=== PATIENT | male | born 1990 | race Two or more races ===

== ENCOUNTER 2019-08-20 23:45 | Inpatient (IN) | payer MEDICAID ==
[~2019-08-20] VITALS: Ht 167.6 cm; Wt 90.7 kg
[2019-08-20 23:50] VITALS: BP 80/72
--- NOTE | 2019-08-20 23:50 | NUR ---
ED Nurse Note: Pt brought into ED by ROMEO RA 826 from home for c/o abdominal pain and n/v since yesterday after using meth. Pt states he quit using meth then has recently started using again. Pt reports he had episodes of vomiting blood and has had black, bloody stools. Pt is aaox4, breathing is normal and unlabored. Pt connected to secondary history teacher and HR is elevated in 140's, ERMD bedside and aware. Pt also had low BP upon ED triage of 80/72. IV line established, blood drawn by RN and fluids inititated. Will continue to monitor.
[2019-08-21] VITALS (8 sets, daily range): BP systolic 96–135; BP diastolic 61–87
[2019-08-21] MEDS ORDERED: Pantoprazole Inj IV ONE
--- NOTE | 2019-08-21 00:03 | Emergency Room Report ---
History of Present Illness General Chief Complaint: Vomiting Source: Patient Present Illness [facility] This is a 29-year-old male with no past medical history. He does have a history of chronic methamphetamine abuse occasional alcohol. He presents with chief complaint abdominal pain with vomiting. Onset yesterday. He said his been using methamphetamine heavily. He felt nauseous and started vomiting yesterday. He noticed blood in his vomiting. His stool was also black. He got progressively worse to have to call 911. He said pain is to the epigastric area. Worse when he stands up. He felt like passing out when he stands up. No trauma. Allergies: Coded Allergies: No Known Allergies (Unverified , 08/20/19) COVID-19 Screening Contact w/high risk pt: No Recent Travel to affected area: No Experienced COVID-19 symptoms?: No Patient History Past Medical History: none, see triage record, old chart reviewed Past Surgical History: none Pertinent Family History: none Social History: Reports: alcohol use, drug use Immunizations: other Reviewed Nursing Documentation: PMH: Agreed; PSxH: Agreed Nursing Documentation-PMH Past Medical History: No Stated History Review of Systems Eye: Denies: eye pain, blurred vision ENT: Denies: ear pain, nose congestion, throat swelling Respiratory: Denies: cough, shortness of breath Cardiovascular: Denies: chest pain, palpitations Gastrointestinal: Reports: abdominal pain, nausea, vomiting; Denies: diarrhea Musculoskeletal: Denies: back pain, joint pain Skin: Denies: rash Neurological: Denies: headache, numbness Endocrine: Denies: increased thirst, increased urine Hematologic/Lymphatic: Denies: easy bruising All Other Systems: negative except mentioned in HPI Physical Exam Vital Signs Date Time Temp Pulse Resp B/P (MAP) Pulse Ox O2 Delivery O2 Flow Rate FiO2 08/20/19 23:41 97.7 166 20 80/72 (75) 89 Room Air Vitals with tachycardia and hypotension. Repeat oxygenation is 94% on room air Sp02 EP Interpretation: reviewed, normal General Appearance: no apparent distress, alert, mild distress Head: normocephalic, atraumatic Eyes: bilateral eye PERRL, bilateral eye EOMI ENT: hearing grossly normal, normal pharynx Neck: full range of motion, supple, no meningismus Respiratory: chest non-tender, lungs clear, normal breath sounds Cardiovascular #1: regular rate, rhythm, no murmur, tachycardia - 130s Gastrointestinal: normal bowel sounds, non tender, no mass, no organomegaly, no bruit, non-distended Musculoskeletal: back normal, normal range of motion, gait/station normal Neurologic: alert, oriented Psychiatric: mood/affect normal Skin: pallor Medical Decision Making Diagnostic Impression: Primary Impression: UGIB (upper gastrointestinal bleed) Additional Impressions: Anemia Qualified Codes: D62 - Acute posthemorrhagic anemia Methamphetamine abuse TIERA (acute kidney injury) PUD (peptic ulcer disease) ER Course Pt with ugi bleed. hg drops from 13.4 to 9.9. HR improves after IVF. CT showed no perforation. PPI given. will admit. I discussed case with Dr. Salinas who will admit. EKG Diagnostic Results Rate: tachycardiac Rhythm: NSR ST Segments: no acute changes Rhythm Strip Diag. Results EP Interpretation: yes Rate: 110 Rhythm: NSR, no PVC's, no ectopy Chest X-Ray Diagnostic Results Chest X-Ray Diagnostic Results : Chest X-Ray Ordered: Yes # of Views/Limited/Complete: 1 View Indication: Chest Pain EP Interpretation: Yes Interpretation: no consolidation, no effusion, no pneumothorax, no acute cardiopulmonary disease Impression: No acute disease Electronically Signed by: Tru Mclaughlin MD CT/MRI/US Diagnostic Results CT/MRI/US Diagnostic Results : Imaging Test Ordered: Ct abd and pelvis Impression Read by radiologist. no perforation. esophagitis. Last Vital Signs Date Time Temp Pulse Resp B/P (MAP) Pulse Ox O2 Delivery O2 Flow Rate FiO2 /15/20 23:41 97.7 166 20 80/72 (75) 89 Room Air Status: improved Disposition: ADMITTED INPATIENT Condition: Serious Scripts No Active Prescriptions or Reported Meds Tru Mclaughlin MD Aug 21, 2019 00:03
[2019-08-21 00:05] LABS: HEMATOCRIT 37.8 % (42.0-52.0); HEMOGLOBIN 13.4 G/DL (14.2-18.0); MEAN CORPUSCULAR VOLUME 79 FL (80-99); PLATELET COUNT 367 K/UL (150-450); RED BLOOD COUNT 4.82 M/UL (4.70-6.10); RED CELL DISTRIBUTION WIDTH 12.2 % (11.6-14.8); WHITE BLOOD COUNT 18.1 K/UL (4.8-10.8)
[2019-08-21 00:15] LABS: ANION GAP 20 mmol/L (5-15); BLOOD UREA NITROGEN 46 mg/dL (7-18); CARBON DIOXIDE 21 MMOL/L (21-32); CHLORIDE 102 MMOL/L (98-107); CREATININE 2.3 MG/DL (0.55-1.30); POTASSIUM 4.1 MMOL/L (3.5-5.1); SODIUM 142 MMOL/L (136-145)
[2019-08-21 00:19] LABS: ALANINE AMINOTRANSFERASE 55 U/L (12-78); ALBUMIN 3.8 G/DL (3.4-5.0); ALBUMIN/GLOBULIN RATIO 0.9 (1.0-2.7); ALKALINE PHOSPHATASE 73 U/L (46-116); ASPARTATE AMINO TRANSFERASE 24 U/L (15-37); BILIRUBIN,TOTAL 0.5 MG/DL (0.2-1.0)
[2019-08-21] MEDS ORDERED: LORazepam Inj 2mg/ml 1ml IV ONE (00:30)
--- NOTE | 2019-08-21 00:30 | NUR ---
ED Nurse Note: Pt BP stable after receiving NS. No acute distress noted.
--- NOTE | 2019-08-21 00:30 | NUR ---
ED Nurse Note: Pt remains tachy with HR in 130's, ERMD made aware. No new orders at this time.
--- NOTE | 2019-08-21 01:10 | NUR ---
ED Nurse Note: Urine collected and sent to lab.
[2019-08-21 01:19] LABS: APPEARANCE,URINE CLEAR; BILIRUBIN, URINE NEGATIVE (NEGATIVE); COLOR,URINE PALE YELLOW; GLUCOSE, URINE (UA) NEGATIVE (NEGATIVE); KETONES,URINE 3+ (NEGATIVE); LEUKOCYTE ESTERASE ,URINE 1+ (NEGATIVE); NITRITE,URINE NEGATIVE (NEGATIVE); PH,URINE 5 (4.5-8.0); PROTEIN,URINE 2+ (NEGATIVE); UROBILINOGEN,URINE NORMAL MG/DL (0.0-1.0)
--- NOTE | 2019-08-21 01:20 | NUR ---
ED Nurse Note: HR remains elevated in 120's at this time, ERMD aware. Will carry out order for NS bolus.
--- NOTE | 2019-08-21 02:05 | NUR ---
ED Nurse Note: Pt provided with sandwhich and juice, Ok'd by BETTE.
--- NOTE | 2019-08-21 02:18 | Diagnostic Imaging Report ---
EXAM: CT Abdomen and Pelvis Without Intravenous Contrast CLINICAL HISTORY: ABD PAIN TECHNIQUE: Axial computed tomography images of the abdomen and pelvis without intravenous contrast. CTDI is 9.7 mGy and DLP is 546.4 mGy-cm. One or more of the following dose reduction techniques were used: automated exposure control, adjustment of the mA and/or kV according to patient size, use of iterative reconstruction technique. COMPARISON: No relevant prior studies available. FINDINGS: Lung bases: Unremarkable. No mass. No consolidation. Mediastinum: Mucosal thickening and fat stranding around the distal esophagus as can be seen in the setting of esophagitis. ABDOMEN: Liver: Hepatic steatosis. Gallbladder and bile ducts: Unremarkable. No calcified stones. No ductal dilation. Pancreas: Unremarkable. No ductal dilation. Spleen: Unremarkable. No splenomegaly. Adrenals: Unremarkable. No mass. Kidneys and ureters: Unremarkable. No obstructing stones. No hydronephrosis. Stomach and bowel: Unremarkable. PELVIS: Appendix: No findings to suggest acute appendicitis. Bladder: Unremarkable. No stones. Reproductive: Unremarkable as visualized. ABDOMEN and PELVIS: Intraperitoneal space: Unremarkable. No free air. No significant fluid collection. Bones/joints: No acute fracture. No dislocation. Soft tissues: Unremarkable. Vasculature: Unremarkable. No abdominal aortic aneurysm. Lymph nodes: Unremarkable. No enlarged lymph nodes. IMPRESSION: 1. Mucosal thickening and fat stranding around the distal esophagus as can be seen in the setting of esophagitis. 2. Hepatic steatosis.
--- NOTE | 2019-08-21 02:45 | NUR ---
ED Nurse Note: Pt tolerated food and juice well. No episodes of vomiting in the ED.
[2019-08-21 03:17] LABS: BASOPHILS % (AUTO) 0.5 % (0.0-2.0); EOSINOPHILS % (AUTO) 0.1 % (0.0-3.0); HEMATOCRIT 28.5 % (42.0-52.0); HEMOGLOBIN 9.9 G/DL (14.2-18.0); LYMPHOCYTES % (AUTO) 16.4 % (20.0-45.0); MEAN CORPUSCULAR VOLUME 78 FL (80-99); MONOCYTES % (AUTO) 7.8 % (1.0-10.0); NEUTROPHILS % (AUTO) 75.3 % (45.0-75.0); PLATELET COUNT 212 K/UL (150-450); RED BLOOD COUNT 3.63 M/UL (4.70-6.10); RED CELL DISTRIBUTION WIDTH 12.1 % (11.6-14.8); WHITE BLOOD COUNT 13.3 K/UL (4.8-10.8)
--- NOTE | 2019-08-21 03:30 | NUR ---
ED Nurse Note: Pt is sleeping in bed at this time. No acute distress noted. Pt HR remains elevated, ERMD aware. Will continue to monitor.
[2019-08-21 03:33] LABS: ANION GAP 12 mmol/L (5-15); BLOOD UREA NITROGEN 37 mg/dL (7-18); CARBON DIOXIDE 22 MMOL/L (21-32); CHLORIDE 112 MMOL/L (98-107); CREATININE 1.5 MG/DL (0.55-1.30); POTASSIUM 4.4 MMOL/L (3.5-5.1); SODIUM 146 MMOL/L (136-145)
--- NOTE | 2019-08-21 03:45 | NUR ---
ED Nurse Note: Report given to VALDEMAR Go.
--- NOTE | 2019-08-21 03:50 | NUR ---
ED Nurse Note: Pt is stable for transfer to tele unit at this time per ERMD. Pt is aaox4, vital signs are stable, no respiratory distress noted. Pt IVs are patent and intact. Pt transferred to unit via gurney, connected to jewish thought professor with RN and sri. Pt belongings sent with pt.
--- NOTE | 2019-08-21 04:35 | NUR ---
NURSE NOTES: Received pt from ED via gurney. Pt transferred to [facility] without any incident. Pt is A/Ox4. Breese pt to room, unit, and hospital policies. Received report from VALDEMAR Messina. monitoring and evaluation advisor is in placed; pt is ST (HR 116). IV site intact, asymptomatic, and patent. Belongings list checked and signed. Bed is in the lowest position and locked. Call light and bedside table is within reach. No signs/symptoms of acute distress noted at this time. Will contact Dr. Salinas for admission orders.
--- NOTE | 2019-08-21 05:00 | NUR ---
NURSE NOTES: Contacted Dr. Salinas for admission orders. Awaiting call back.
--- NOTE | 2019-08-21 06:54 | NUR ---
NURSE NOTES: Received admission orders from Dr. Salinas. Will note and carry out.
--- NOTE | 2019-08-21 07:30 | NUR ---
NURSE NOTES: Pt awake/alert in bed, breathing easily on room air, denies SOB and denies pain at this time. Vital signs stable with SR @ 110 on monitor. IV access LAC with D5NS @ 125. Bed left in low position, side rails up x 2 and call light left near pt's hand.
--- NOTE | 2019-08-21 07:46 | NUR ---
HAND-OFF: Report given to VALDEMAR Gottlieb. Plan of care endorsed.
--- NOTE | 2019-08-21 07:49 | Diagnostic Imaging Report ---
Indication: Shortness of breath Technique: One view of the chest Comparison: none Findings: Inspiration is suboptimal. The lungs and pleural spaces are clear. The heart size is normal Impression: No acute process
[2019-08-21] MEDS: D5NS 1,000 ML IV SCH ×2 (08:00→16:00)
[2019-08-21] MEDS: Pantoprazole Inj IVP SCH ×2 (09:05→18:00)
--- NOTE | 2019-08-21 10:37 | History & Physical ---
History and Physical History & Physicial seen and examined. Full Dictation completed Nat Salinas MD Aug 21, 2019 10:37
--- NOTE | 2019-08-21 10:39 | General Progress Note ---
Assessment/Plan Problem List: (1) Methamphetamine abuse ICD Codes: F15.10 - Other stimulant abuse, uncomplicated SNOMED: 403874363 (2) TIERA (acute kidney injury) ICD Codes: N17.9 - Acute kidney failure, unspecified SNOMED: 69761683, 4851813 (3) Anemia ICD Codes: D64.9 - Anemia, unspecified SNOMED: 769552418 Qualifiers: Qualified Codes: D62 - Acute posthemorrhagic anemia (4) UGIB (upper gastrointestinal bleed) ICD Codes: K92.2 - Gastrointestinal hemorrhage, unspecified SNOMED: 41410044 Assessment/Plan: CT reviewed most likely MWT vs esophagitis Amphetamine abuse npo ivf ppi carafate fu H&H prn blood transfusion EGd if needed Subjective Allergies: Coded Allergies: No Known Allergies (Unverified , 08/20/19) Objective Last 24 Hour Vital Signs Date Time Temp Pulse Resp B/P (MAP) Pulse Ox O2 Delivery O2 Flow Rate FiO2 08/21/19 04:45 Room Air 08/21/19 04:40 120 08/21/19 04:35 98.4 112 20 106/69 (81) 96 08/21/19 03:50 98.1 117 17 105/66 98 Room Air 08/21/19 03:30 98.1 120 19 97/63 99 Room Air 08/21/19 01:20 97.7 125 19 108/61 99 Room Air 08/21/19 00:30 97.7 133 22 107/61 98 Room Air 08/20/19 23:50 97.7 148 20 80/72 96 Room Air 08/20/19 23:50 148 20 Room Air 08/20/19 23:41 97.7 166 20 80/72 (75) 89 Room Air Intake and Output 08/20/19 08/21/19 19:00 07:00 Intake Total 2000 ml Output Total 600 ml Balance 1400 ml Intake IV Total 2000 ml Output Urine Total 600 ml # Voids 2 # Bowel Movements 1 Laboratory Tests 08/20/19 23:56: White Blood Count 18.1H, Red Blood Count 4.82, Hemoglobin 13.4L, Hematocrit 37.8L, Mean Corpuscular Volume 79L, Mean Corpuscular Hemoglobin 27.8, Mean Corpuscular Hemoglobin Concent 35.4, Red Cell Distribution Width 12.2, Platelet Count 367, Mean Platelet Volume 8.5, Neutrophils (%) (Auto) , Lymphocytes (%) ( Auto) , Monocytes (%) (Auto) , Eosinophils (%) (Auto) , Basophils (%) (Auto) , Differential Total Cells Counted 100, Neutrophils % (Manual) 59, Lymphocytes % ( Manual) 30, Monocytes % (Manual) 8, Eosinophils % (Manual) 0, Basophils % ( Manual) 0, Band Neutrophils 3, Platelet Estimate Adequate, Platelet Morphology Normal, Prothrombin Time 10.9, Prothromb Time International Ratio 1.0, Activated Partial Thromboplast Time 25, Sodium Level 142, Potassium Level 4.1, Chloride Level 102, Carbon Dioxide Level 21, Anion Gap 20H, Blood Urea Nitrogen 46H, Creatinine 2.3H, Estimat Glomerular Filtration Rate 33.6, Glucose Level 227H, Calcium Level 9.0, Total Bilirubin 0.5, Aspartate Amino Transf (AST/SGOT) 24, Alanine Aminotransferase (ALT/SGPT) 55, Alkaline Phosphatase 73, Troponin I 0.061H, Total Protein 7.9, Albumin 3.8, Globulin 4.1, Albumin/Globulin Ratio 0.9L, Lipase 95 08/21/19 01:10: Urine Color Pale yellow, Urine Appearance Clear, Urine pH 5, Urine Specific [place] 1.015, Urine Protein 2+H, Urine Glucose (UA) Negative, Urine Ketones 3+H , Urine Blood Negative, Urine Nitrite Negative, Urine Bilirubin Negative, Urine Urobilinogen Normal, Urine Leukocyte Esterase 1+H, Urine RBC 0-2H, Urine WBC 0-2 , Urine Squamous Epithelial Cells None, Urine Bacteria None, Urine Opiates Screen Negative, Urine Barbiturates Screen Negative, Phencyclidine (PCP) Screen Negative, Urine Amphetamines Screen PositiveH, Urine Benzodiazepines Screen Negative, Urine Cocaine Screen Negative, Urine Marijuana (THC) Screen Negative 08/21/19 03:00: White Blood Count 13.3H, Red Blood Count 3.63L, Hemoglobin 9.9L, Hematocrit 28.5L, Mean Corpuscular Volume 78L, Mean Corpuscular Hemoglobin 27.2, Mean Corpuscular Hemoglobin Concent 34.6, Red Cell Distribution Width 12.1, Platelet Count 212, Mean Platelet Volume 8.1, Neutrophils (%) (Auto) 75.3H, Lymphocytes ( %) (Auto) 16.4L, Monocytes (%) (Auto) 7.8, Eosinophils (%) (Auto) 0.1, Basophils (%) (Auto) 0.5, Sodium Level 146H, Potassium Level 4.4, Chloride Level 112H, Carbon Dioxide Level 22, Anion Gap 12, Blood Urea Nitrogen 37H, Creatinine 1.5H, Estimat Glomerular Filtration Rate 55.0, Glucose Level 109#H, Calcium Level 7.0#L, Troponin I 0.057H Height (Feet): 5 Height (Inches): 6.00 Weight (Pounds): 200 General Appearance: alert EENT: normal ENT inspection Neck: supple Cardiovascular: normal rate Respiratory/Chest: decreased breath sounds Abdomen: normal bowel sounds, non tender, soft Extremities: non-tender Maikel Spears MD Aug 21, 2019 10:39
--- NOTE | 2019-08-21 11:52 | NUR ---
PRICING CLERK NOTE SW received a notification for health social work professor concern. SW met w/ pt and assessed pt's needs and obtained information. Pt presents as A&O4x and cooperative. Pt reports not having an insurance. Julienne, itting is aware of pt's status and will assess for insurance eligibility. Pt resides w/ his mother at [address] [place] [address]. Pt works 1x/week and he recently relapsed methamphetamine abuse after being sober for 4 months. SW provided resource on substance abuse rehab programs and hotlines. Pt is wiling to call hotlines as needed. SW encouraged pt to utilize such resources. Emergency contacts: Zeny Pruitt (mother) [phone] Carolyn Leon (ex-girlfriend) [phone]
[2019-08-21] MEDS: Sucralfate 1gm tab ORAL SCH ×3 (13:02→21:22)
--- NOTE | 2019-08-21 13:16 | NUR ---
CASE MANAGEMENT: INITIAL REVIEW 29YR OLD MALE DAVID FROM HOME CC: UNCONTROLLED VOMITING BLOOD SINCE YESTERDAY WHILE TAKING METH SI:UPPER GI BLEED . ANEMIA . METHAMPHETAMINE ABUSE . PEPTIC ULCER DISEASE . ACUTE KIDNEY INJURY 97.7 166 20 80/72 89% ON RA WBC 18.1 BUN 46 CREAT 2.3 ANION GAP 20 BG 227 TROP 0.061 IS: IVF NS BOLUS X4 IV ZOFRAN X1 IV PROTONIX X1 IV ATIVAN X1 CHEST X-RAY-No acute process \: 2E TELE UNIT DCP: HOME WHEN STABLE VS TREATMENT CENTER PLAN: TRANSFER TO TELE BED CONTINUOUS HEAD OPERATOR NPO CT ABD PELV CASE MANAGEMENT: REVIEW 08/21/19 SI:UPPER GI BLEED . ANEMIA . METHAMPHETAMINE ABUSE . PEPTIC ULCER DISEASE . ACUTE KIDNEY INJURY 98.4 120 20 106/69 96% ON RA TROP 0.057 WBC 13.3 H/H 9.9/28.5 NA+ 146 CL-112 BUN 37 CREAT 1.5 BG 109 CA+ 7.0 IS: IV D5@125ML/HR CARAFATE PO QID IV PROTONIX BID CT ABD PELV-Hepatic steatosis \: 2E TELE UNIT DCP: INFORMATION PROVIDED FOR TREATMENT CENTER BY [facility] PLAN: TRANSFER TO TELE BED CONTINUOUS HEAD OPERATOR NPO
--- NOTE | 2019-08-21 18:15 | History and Physical Report ---
DATE OF ADMISSION: 08/21/2019 SOURCE OF INFORMATION: Patient and EMR. HISTORY OF PRESENT ILLNESS: Patient is a 29-year-old male with with history of peptic ulcer disease, who reported after using the crack methamphetamine had episodes of upper GI bleeding for 1 day. Patient complained of lightheadedness. Denies any abdominal pain. Denies shortness of breath. Denies cough or fever. ALLERGIES: NKDA. FAMILY HISTORY: Noncontributory. PAST MEDICAL HISTORY: History of peptic ulcer disease and drug abuse. SOCIAL HISTORY: Patient is , has 1 child, positive for the crystal amphetamine use via snorting. Denies any IV drug abuse. MEDICATIONS: Current hospital medications including Protonix IV. PHYSICAL EXAMINATION: VITAL SIGNS: Blood pressure 130/80, temperature 98.2, pulse oximetry 98% on room air, respiratory rate 18, pulse rate 120. HEAD AND NECK: Atraumatic and normocephalic. CHEST: Clear to auscultation. HEART: S1, S2. Regular rate and rhythm. ABDOMEN: Soft. No organomegaly. MUSCULOSKELETAL: No gross lateralized motor deficit. NEUROLOGY: Awake, alert, oriented x3. LABORATORY DATA: Labs dated 08/21/2019 shows hemoglobin of 9.9, platelet count of 212. INR of 1. Sodium 146, creatinine of 1.5, glucose of 109. Troponin of 0.05. IMAGING: Abdominal pelvis CT scan shows evidence of , otherwise unremarkable for acute pathology and chest x-ray is unremarkable. ASSESSMENT: 1. Acute upper GI bleed. 2. Acute renal failure. 3. Dehydration. 4. Abnormal blood sugar. 5. Substance abuse. Positive for crystal methamphetamine. 6. GI and DVT prophylaxis. PLAN OF CARE: We will continue with IV Protonix. GI notified. Continue with hydration. Nat Salinas M.D. DR: CAROL JOB#: [id number] CC:
--- NOTE | 2019-08-21 20:00 | NUR ---
NURSE NOTES: RECEIVED PATIENT LYING IN BED, AWAKE, ALERT/ORIENTED X4, VERBALLY RESPONSIVE, DENIES PAIN. NO SIGNS AND SYMPTOMS OF ACUTE CARDIO RESPIRATORY DISTRESS/SHORTNESS OF BREATH, DENIES CHEST PAIN, SINUS RHYTHM ON NEAR EAST ARCHEOLOGY PROFESSOR. IV INTACT TO LAC/RAC, GAUGE 20, NO SWELLING/REDNESS NOTED TO SITE. NO COMPLAINTS OF GI DISCOMFORT, DENIES N/V/D. SIDE RAILS UP X2, BED IN LOWEST POSITION FOR SAFETY, ENCOURAGED PATIENT TO UTILIZE CALL LIGHT FOR ASSISTANCE, VERBALIZED UNDERSTANDING. CONTINUE WITH CURRENT PLAN OF CARE. PATIENT AWARE OF NPO STATUS. NAD.
[2019-08-22] VITALS: BP 115/78
[2019-08-22] MEDS ORDERED: LORazepam 0.5mg tab ORAL PRN (00:15)
[2019-08-22] MEDS: D5NS 1,000 ML IV SCH ×3 (03:00→13:40)
[2019-08-22 04:00] VITALS: BP 121/57
--- NOTE | 2019-08-22 06:48 | NUR ---
NURSE NOTES: RESTED WELL, NO SIGNIFICANT CHANGE OF CONDITION NOTED THROUGHOUT THE NIGHT. SAFETY MAINTAINED. NAD.
[2019-08-22 06:58] LABS: BASOPHILS % (AUTO) 1.5 % (0.0-2.0); EOSINOPHILS % (AUTO) 5.6 % (0.0-3.0); HEMATOCRIT 26.8 % (42.0-52.0); HEMOGLOBIN 9.1 G/DL (14.2-18.0); LYMPHOCYTES % (AUTO) 46.9 % (20.0-45.0); MEAN CORPUSCULAR VOLUME 80 FL (80-99); MONOCYTES % (AUTO) 6.4 % (1.0-10.0); NEUTROPHILS % (AUTO) 39.6 % (45.0-75.0); PLATELET COUNT 170 K/UL (150-450); RED BLOOD COUNT 3.34 M/UL (4.70-6.10); RED CELL DISTRIBUTION WIDTH 12.4 % (11.6-14.8); WHITE BLOOD COUNT 6.4 K/UL (4.8-10.8)
--- NOTE | 2019-08-22 07:15 | General Progress Note ---
Assessment/Plan Problem List: (1) Methamphetamine abuse ICD Codes: F15.10 - Other stimulant abuse, uncomplicated SNOMED: 980514954 (2) TIERA (acute kidney injury) ICD Codes: N17.9 - Acute kidney failure, unspecified SNOMED: 23804869, 0807520 (3) Anemia ICD Codes: D64.9 - Anemia, unspecified SNOMED: 765811458 Qualifiers: Qualified Codes: D62 - Acute posthemorrhagic anemia (4) UGIB (upper gastrointestinal bleed) ICD Codes: K92.2 - Gastrointestinal hemorrhage, unspecified SNOMED: 19872878 Assessment/Plan: CT reviewed most likely MWT vs esophagitis Amphetamine abuse no recurrent hematemesis start clears and advance as tolerated fu cardiology given elevated trop ivf ppi carafate fu H&H prn blood transfusion EGd if needed Subjective ROS Limited/Unobtainable: Yes Allergies: Coded Allergies: No Known Allergies (Unverified , 08/20/19) Objective Last 24 Hour Vital Signs Date Time Temp Pulse Resp B/P (MAP) Pulse Ox O2 Delivery O2 Flow Rate FiO2 08/22/19 04:00 82 08/22/19 04:00 Room Air 08/22/19 04:00 97.3 91 17 121/57 (78) 98 08/22/19 00:00 Room Air 08/22/19 00:00 97.7 93 18 115/78 (90) 99 08/22/19 00:00 87 08/21/19 21:00 93 08/21/19 21:00 Room Air 08/21/19 20:00 97.7 94 17 96/70 (79) 100 08/21/19 16:00 97.6 94 18 131/81 (98) 96 08/21/19 16:00 94 08/21/19 12:00 97.9 87 22 129/87 (101) 97 08/21/19 12:00 99 08/21/19 09:00 Room Air 08/21/19 08:00 97.8 91 20 135/67 (89) 93 Intake and Output 08/21/19 08/22/19 19:00 07:00 Intake Total 125 ml 1310 ml Balance 125 ml 1310 ml Intake Oral 60 ml IV Total 125 ml 1250 ml # Voids 2 3 Laboratory Tests 08/22/19 05:39: White Blood Count 6.4#, Red Blood Count 3.34L, Hemoglobin 9.1L, Hematocrit 26.8L , Mean Corpuscular Volume 80, Mean Corpuscular Hemoglobin 27.3, Mean Corpuscular Hemoglobin Concent 34.0, Red Cell Distribution Width 12.4, Platelet Count 170, Mean Platelet Volume 8.2, Neutrophils (%) (Auto) 39.6L, Lymphocytes ( %) (Auto) 46.9H, Monocytes (%) (Auto) 6.4, Eosinophils (%) (Auto) 5.6H, Basophils (%) (Auto) 1.5, Sodium Level [Pending], Potassium Level [Pending], Chloride Level [Pending], Carbon Dioxide Level [Pending], Blood Urea Nitrogen [ Pending], Creatinine [Pending], Estimat Glomerular Filtration Rate [Pending], Glucose Level [Pending], Hemoglobin A1c [Pending], Calcium Level [Pending], Total Bilirubin [Pending], Aspartate Amino Transf (AST/SGOT) [Pending], Alanine Aminotransferase (ALT/SGPT) [Pending], Alkaline Phosphatase [Pending], Total Protein [Pending], Albumin [Pending], Globulin [Pending] Height (Feet): 5 Height (Inches): 6.00 Weight (Pounds): 200 General Appearance: alert EENT: normal ENT inspection Neck: supple Cardiovascular: normal rate Respiratory/Chest: decreased breath sounds Abdomen: normal bowel sounds, non tender, soft Extremities: non-tender Maikel Spears MD Aug 22, 2019 07:15
[2019-08-22 07:22] LABS: ALANINE AMINOTRANSFERASE 40 U/L (12-78); ALBUMIN 2.8 G/DL (3.4-5.0); ALKALINE PHOSPHATASE 47 U/L (46-116); ANION GAP 8 mmol/L (5-15); ASPARTATE AMINO TRANSFERASE 26 U/L (15-37); BILIRUBIN,TOTAL 0.3 MG/DL (0.2-1.0); BLOOD UREA NITROGEN 20 mg/dL (7-18); CALCIUM 8.1 MG/DL (8.5-10.1); CARBON DIOXIDE 25 MMOL/L (21-32); CHLORIDE 110 MMOL/L (98-107); CREATININE 1.2 MG/DL (0.55-1.30); POTASSIUM 3.8 MMOL/L (3.5-5.1); SODIUM 142 MMOL/L (136-145)
--- NOTE | 2019-08-22 07:30 | NUR ---
HAND-OFF: Report given to VALDEMAR CHERRY.
--- NOTE | 2019-08-22 07:46 | NUR ---
NURSE NOTES: Pt asleep in bed, breathing easily on room air, awoke to soft voice, denies SOB and denies pain at this time. Vital signs stable with SR @ 110 on monitor. IV access LAC with D5NS @ 125. Bed left in low position, side rails up x 2 and call light left near pt's hand.
[2019-08-22 08:10] VITALS: BP 98/61
--- NOTE | 2019-08-22 08:44 | Consultation ---
DATE OF CONSULTATION: 08/21/2019 HISTORY OF PRESENT ILLNESS: The patient is a 29-year-old male with a history of peptic ulcer as well as substance abuse disorder, mainly amphetamines, is admitted to the hospital due to his gastrointestinal bleeding. Patient is in bed. No behavior issues noted, depressed, anhedonia, worthlessness, hopelessness. PAST PSYCHIATRIC HISTORY: Depression. PAST MEDICAL HISTORY: As above. ALLERGIES: No known drug allergies. SUBSTANCE ABUSE HISTORY: Methamphetamines. MENTAL STATUS EXAM: Show oriented to time, self, place, and situation. Mood is neutral. Affect is flat. Thought process is concrete. Thought content, no suicidal or homicidal ideation. ASSESSMENT: [place] I: Methamphetamine dependence. AXIS II: Deferred. AXIS III: As above. AXIS IV: Low. AXIS V: . PLAN: 1. Ativan as needed. 2. Remeron as needed. 3. The patient should be discharged when medically cleared. Marcela Varela M.D. DR: Halie JOB#: [id number] CC:
[2019-08-22] MEDS: Sucralfate 1gm tab ORAL SCH ×2 (09:01→13:00)
[2019-08-22] MEDS: Pantoprazole Inj IVP SCH (09:01)
--- NOTE | 2019-08-22 11:23 | NUR ---
CASE MANAGEMENT: REVIEW 08/21/19 SI:UPPER GI BLEED . ANEMIA . METHAMPHETAMINE ABUSE . PEPTIC ULCER DISEASE . ACUTE KIDNEY INJURY 99.3 85 20 98/61 98% ON RA H/H 9.1/26.8 CL-110 CA+ 8.1 ALBUMIN 2.8 IS: IV D5@125ML/HR CARAFATE PO QID IV PROTONIX BID \: 2E TELE UNIT DCP: INFORMATION PROVIDED FOR TREATMENT CENTER BY [facility] PLAN: START ON CLEAR POSSIBLE DC OVER WEEKEND
[2019-08-22 12:00] VITALS: BP 110/63
--- NOTE | 2019-08-22 17:43 | NUR ---
NURSE NOTES: Pt left AMA. Signed belongings form and AMA for, breathing easliy on room air, advised to find a PMD for follow up and to return to the ER for vomiting or passing blood or for weak/dizzy. Pt sts that family will call an Uber for a safe way to get home. Left thru elevator with all belongings.
--- NOTE | 2019-08-22 21:32 | General Progress Note ---
Assessment/Plan Assessment/Plan: S: I am ok O: denies any active bleeding. asymptomatic, tolerates food PHYSICAL EXAMINATION:HEAD AND NECK: Atraumatic and normocephalic. CHEST: Clear to auscultation. HEART: S1, S2. Regular rate and rhythm. ABDOMEN: Soft. No organomegaly. MUSCULOSKELETAL: No gross lateralized motor deficit. NEUROLOGY: Awake, alert, oriented x3. LABORATORY DATA: Labs dated 08/21 reviwed ASSESSMENT: 1. Acute upper GI bleed. 2. Acute renal failure. 3. Dehydration. 4. Abnormal blood sugar. 5. Substance abuse. Positive for crystal methamphetamine. 6. GI and DVT prophylaxis. PLAN OF CARE: We will continue with IV Protonix. GI notified. Continue with hydration. ok to fu as o/p once clear by GI Subjective Allergies: Coded Allergies: No Known Allergies (Unverified , 08/20/19) Objective Last 24 Hour Vital Signs Date Time Temp Pulse Resp B/P (MAP) Pulse Ox O2 Delivery O2 Flow Rate FiO2 08/22/19 12:00 99.1 85 20 110/63 (79) 99 08/22/19 12:00 80 08/22/19 09:00 Room Air 08/22/19 08:10 99.3 85 20 98/61 (73) 98 08/22/19 08:00 80 08/22/19 04:00 82 08/22/19 04:00 Room Air 08/22/19 04:00 97.3 91 17 121/57 (78) 98 08/22/19 00:00 Room Air 08/22/19 00:00 97.7 93 18 115/78 (90) 99 08/22/19 00:00 87 Intake and Output 08/21/19 08/22/19 19:00 07:00 Intake Total 125 ml 1310 ml Balance 125 ml 1310 ml Intake Oral 60 ml IV Total 125 ml 1250 ml # Voids 2 3 Laboratory Tests 08/22/19 05:39: White Blood Count 6.4#, Red Blood Count 3.34L, Hemoglobin 9.1L, Hematocrit 26.8L , Mean Corpuscular Volume 80, Mean Corpuscular Hemoglobin 27.3, Mean Corpuscular Hemoglobin Concent 34.0, Red Cell Distribution Width 12.4, Platelet Count 170, Mean Platelet Volume 8.2, Neutrophils (%) (Auto) 39.6L, Lymphocytes ( %) (Auto) 46.9H, Monocytes (%) (Auto) 6.4, Eosinophils (%) (Auto) 5.6H, Basophils (%) (Auto) 1.5, Sodium Level 142, Potassium Level 3.8, Chloride Level 110H, Carbon Dioxide Level 25, Anion Gap 8, Blood Urea Nitrogen 20H, Creatinine 1.2, Estimat Glomerular Filtration Rate > 60, Glucose Level 89, Hemoglobin A1c 6.0, Calcium Level 8.1L, Total Bilirubin 0.3, Aspartate Amino Transf (AST/SGOT) 26, Alanine Aminotransferase (ALT/SGPT) 40, Alkaline Phosphatase 47, Total Protein 5.7L, Albumin 2.8L, Globulin 2.9, Albumin/Globulin Ratio 1.0 Height (Feet): 5 Height (Inches): 6.00 Weight (Pounds): 200 Nat Salinas MD Aug 22, 2019 21:31
--- NOTE | 2019-08-22 23:30 | Psych Consult Progress Note ---
Psychiatry Progress Note Psychiatry Progress Note Neurological/Psychiatric: Reports: anxiety, depressed, emotional problems Allergies: Coded Allergies: No Known Allergies (Unverified , 08/20/19) Objective Data Height (Feet): 5 Height (Inches): 6.00 Weight (Pounds): 200 Additional Comments: oriented to time, self, place, and situation. Mood is neutral. Affect is flat. Thought process is concrete. Thought content, no suicidal or homicidal ideation. Assessment/Plan [place] I: ASSESSMENT: [place] I: Methamphetamine dependence. PLAN: 1. Ativan as needed. 2. Remeron as needed. 3. The patient should be discharged when medically cleared. Marcela Varela MD Aug 22, 2019 23:30
--- NOTE | 2019-08-24 11:55 | Discharge Summary ---
Discharge Summary Discharge Summary _ DATE OF ADMISSION: 08/21/2019 DATE OF DISCHARGE: 08/22/2019 CONSULTANTS: Dr. Marcela Spears [facility] HOSPITAL COURSE: Patient is a 29-year-old male, with history of peptic ulcer disease, who reported after using crack methamphetamine, had episodes of upper GI bleed for 1 day. The patient complained of lightheadedness. Denied abdominal pain. Denied shortness of breath. Denied cough or fever. Upon evaluation at ED, blood pressure was 80/72, heart rate 166. Blood work showed WBC elevated to 18. Hemoglobin 13, hematocrit 38. BUN 46 and creatinine 2.3. Glucose 227. Troponin was 0.061. Urine toxicology positive for amphetamine. Chest x-ray did not show any acute process. CT of the abdomen and pelvis showed mucosal thickening and fat stranding around the distal esophagus as can be seen in the setting of esophagitis; hepatic steatosis ; no evidence of perforation. Heart rate improved with IV hydration. There was a drop of hemoglobin down to 9.9. He was then admitted for evaluation of GI bleed, anemia, acute kidney injury, and amphetamine abuse. He was placed on n.p.o. He was given proton pump inhibitors. He was continued on IV hydration. CBC was trended. He underwent GI evaluation. CT was reviewed. Per GI, most likely Britta- De La Cruz tear versus esophagitis. He was given proton pump inhibitors and Carafate. He underwent psychiatric evaluation. He was diagnosed with methamphetamine dependence. He was placed on Ativan and Remeron PRN. There was no recurrent hematemesis. He was eventually started on clear liquid diet, advanced as tolerated. Full treatment was not carried out as patient left against medical advise. FINAL DIAGNOSES: Upper GI bleed Acute renal failure Dehydration Abnormal blood sugar Substance abuse. Positive for crystal methamphetamine. DISPOSITION: Patient left against medical advise. I have been assigned to complete a discharge summary on this account, I was not involved with the patient's management.--SEEMA Mauricio Jacqueline Robles NP Aug 24, 2019 11:55
== END 2019-08-22 17:30 | disposition left against medical advice (07) | DRG 253 ==
LOC: EMR 23:59 → 2E 08-21 01:58 → EDBEDREQ 08-21 02:28
DX: K92.2 Gastrointestinal hemorrhage, unspecified (principal); N17.9 Acute kidney failure, unspecified; F15.20 Other stimulant dependence, uncomplicated; E86.0 Dehydration; F15.29 Other stimulant dependence with unspecified stimulant-induced disorder; D64.9 Anemia, unspecified
CPT/HCPCS: 36415; 71045; 74176; 80048; 80053; 80307; 81003; 83036; 83690; 84484; 85007; 85025; 85610; 85730; 86850; 86900; 86901; 93005; 96361; 96374; 96375; 99285; J2405; J7030